=== PATIENT | male | born 1950 | race Caucasian/White ===

== ENCOUNTER → 2020-06-04 | Outpatient (CLI) | payer MEDICARE, SELFPAY ==
[~2020-06-04] MED LIST: BACTRIM DS TAB1 EACH PO; CAPECITABINE500 MG PO; COLACE 100MG C100 MG PO; DIFLUCAN 100 M100 MG PO; DRONABINOL5 MG PO; FINASTERIDE5 MG PO; FLOMAX 0.4 MG0.4 MG PO; HEARTBURN RELIE10 MG PO; KENALOG OINT 0.15 GM TOP; LORTAB 5-325 M1 EACH PO; OMNICEF 300 MG300 MG PO; SENNA LAX8.6 MG PO; SIMVASTATIN20 MG PO; STIOLTO RESPIMAT4 GM INH; TYLENOL325 MG PO; VANCOMYCIN HCL125 MG PO; VENTOLIN HFA 66.7 GM INH; VITAMIN B-121000 MCG PO; VITAMIN D3125 MCG PO
== END ==
LOC: OPSV2 12:00
DX: Z01.810 Encounter for preprocedural cardiovascular examination (principal)
CPT/HCPCS: 93005

== ENCOUNTER → 2020-06-06 | Day surgery (SDC) | payer MEDICARE, OTHER | END | disposition home or self-care (01) | LOC: OR 11:13 | PROVIDERS: Urology | PROC: 0T9B00Z Drainage of Bladder with Drainage Device, Open Approach (ICD-10-PCS; principal; 2020-06-06 13:15) | DX: N40.1 Benign prostatic hyperplasia with lower urinary tract symptoms (principal); N39.498 Other specified urinary incontinence; R33.8 Other retention of urine; N31.9 Neuromuscular dysfunction of bladder, unspecified; N13.30 Unspecified hydronephrosis; N32.89 Other specified disorders of bladder; F17.210 Nicotine dependence, cigarettes, uncomplicated; C19 Malignant neoplasm of rectosigmoid junction; R19.7 Diarrhea, unspecified; K21.9 Gastro-esophageal reflux disease without esophagitis; E78.5 Hyperlipidemia, unspecified; J44.9 Chronic obstructive pulmonary disease, unspecified; Z87.440 Personal history of urinary (tract) infections; Z79.899 Other long term (current) drug therapy; Z20.822 Contact with and (suspected) exposure to COVID-19 | CPT/HCPCS: J0694; J2001; J2704; J3010; J7030; J7040; J7120 ==

== ENCOUNTER 2020-06-08 21:52 | Inpatient (IN) | payer MEDICARE, OTHER ==
[~2020-06-08] VITALS: Ht 167.6 cm; Wt 49.0 kg
[~2020-06-08 21:52] MED LIST changes: -DIFLUCAN 100 M100 MG PO; -HEARTBURN RELIE10 MG PO; -KENALOG OINT 0.15 GM TOP; -TYLENOL325 MG PO; -VANCOMYCIN HCL125 MG PO; -VITAMIN D3125 MCG PO
[2020-06-08 22:24] LABS: HEMOGLOBIN 9.7 gm/dl (14.0-17.5); RED BLOOD COUNT 2.58 M/UL (4.20-5.50); WHITE BLOOD COUNT 15.1 K/UL (4.5-11.0)
[2020-06-08 22:41] LABS: BUN/CREATININE RATIO 24 (0-10)
[2020-06-09 03:33] LABS: HEMOGLOBIN 8.5 gm/dl (14.0-17.5); WHITE BLOOD COUNT 15.8 K/UL (4.5-11.0)
[2020-06-09 03:35] LABS: RED BLOOD COUNT 2.25 M/UL (4.20-5.50)
[2020-06-09 05:35] LABS: BUN/CREATININE RATIO 21 (0-10)
[2020-06-10 06:11] LABS: HEMOGLOBIN 8.2 gm/dl (14.0-17.5)
[2020-06-10 06:16] LABS: RED BLOOD COUNT 2.16 M/UL (4.20-5.50)
[2020-06-10 07:03] LABS: BUN/CREATININE RATIO 14 (0-10)
[2020-06-10] MEDS ORDERED: TYLENOL325 MG PO (12:21)
[2020-06-10] MEDS ORDERED: VITAMIN D3125 MCG PO (12:21)
[2020-06-10] MEDS ORDERED: KENALOG OINT 0.15 GM TOP (13:52)
[2020-06-11 02:25] LABS: ADENOVIRUS F 40/41 Not Detected (Negative); ASTROVIRUS Not Detected (Negative); CAMPYLOBACTER Not Detected (Negative); CRYPTOSPORIDIUM Not Detected (Negative); E.COLI 0157 Not Detected (Negative); ENTAMOEBA HISTOLYTICA Not Detected (Negative); ENTEROAGGREGATIVE E.COLI (EAEC Not Detected (Negative); ENTEROPATHOGENIC E.COLI (EPEC) Not Detected (Negative); ENTEROTOXIGENIC E.COLI (ETEC) Not Detected (Negative); GIARDIA LAMBLIA Not Detected (Negative); NOROVIRUS GI/GII Not Detected (Negative); PLESIOMONAS SHIGELLOIDES Not Detected (Negative); ROTOVIRUS A Not Detected (Negative); SALMONELLA Not Detected (Negative); SAPOVIRUS Not Detected (Negative); SHIG/ENTEROINVAS.ECOLI (EIEC) Not Detected (Negative); SHIGA-LIK TOX.PRO.E.COLI (STEC Not Detected (Negative); VIBRIO Not Detected (Negative); VIBRIO CHOLERAE Not Detected (Negative); YERSINIA ENTEROCOLITICA Not Detected (Negative)
[2020-06-11 04:05] LABS: HEMOGLOBIN 8.3 gm/dl (14.0-17.5); RED BLOOD COUNT 2.18 M/UL (4.20-5.50)
[2020-06-11 04:11] LABS: WHITE BLOOD COUNT 9.3 K/UL (4.5-11.0)
[2020-06-11 07:14] LABS: BUN/CREATININE RATIO 13 (0-10)
[2020-06-11 10:46] LABS: CLOSTRIDIUM DIFFICILE TOX A/B DETECTED (Negative)
[2020-06-13 09:33] LABS: BUN/CREATININE RATIO 4 (0-10)
[2020-06-14 04:14] LABS: BUN/CREATININE RATIO 6 (0-10)
[2020-06-15 05:09] LABS: HEMOGLOBIN 8.6 gm/dl (14.0-17.5); RED BLOOD COUNT 2.25 M/UL (4.20-5.50); WHITE BLOOD COUNT 8.9 K/UL (4.5-11.0)
[2020-06-15 05:16] LABS: BUN/CREATININE RATIO 6 (0-10)
[2020-06-16 05:54] LABS: HEMOGLOBIN 8.2 gm/dl (14.0-17.5); RED BLOOD COUNT 2.12 M/UL (4.20-5.50); WHITE BLOOD COUNT 7.6 K/UL (4.5-11.0)
[2020-06-16 06:18] LABS: BUN/CREATININE RATIO 7 (0-10)
--- NOTE | 2020-06-17 12:06 | NUR ---
REPORTED PATIENT EPISODE OF N/V TO [facility].
[2020-06-18 03:19] LABS: HEMOGLOBIN 8.4 gm/dl (14.0-17.5); RED BLOOD COUNT 2.23 M/UL (4.20-5.50); WHITE BLOOD COUNT 5.8 K/UL (4.5-11.0)
[2020-06-18 03:37] LABS: BUN/CREATININE RATIO 10 (0-10)
[2020-06-18] MEDS ORDERED: DIFLUCAN 100 M100 MG PO (10:38)
[2020-06-18] MEDS ORDERED: HEARTBURN RELIE10 MG PO (10:38)
[2020-06-18] MEDS ORDERED: VANCOMYCIN HCL125 MG PO (10:38)
--- NOTE | 2020-06-18 15:07 | NUR ---
PLAN FOR PATIENT TO GO HOME WITH HOME HEALTH TO FOLLOW UP. PATIENT HAS BEEN ABLE TO TRANSFER FROM CHAIR TO BED USING WALKER WITH 1 ASSIST. PATIENT REFUSED OTHER DAYS WHEN PHYSICAL THERAPIST ASKED TO PROVIDE CARE. ENCOURAGED PATIENT THE IMPORTANCE OF FOLLOWING THE REGIMEN OF HIS CARE. PATIENT VERB UNDERSTANDING. PATIENT NEPHEW CALLED AND WAS DEMANDING FOR PATIENT TO GO TO REHAB INSTEAD OF GOING HOME. INFORMED PATIENT OF HOME HEALTH GOING TO EVALUATE PATIENT FOR SERVICES. FAMILY REFUSED PATIENT TO GO HOME AND INSISTENT FOR HIM TO GO TO REHAB. INFORMED PATIENT OF THE FAMILY CALLING AND DEMANDING OF HIM FOR REHAB VS. GOING HOME. PATIENT STATED HE IS GOING HOME AND HE HAD FAMILY MEMBER WHO WILL BE AVAILABLE TO ASSIST HIM. HE ALSO STATED HE KNOWS HE WILL GET BETTER IF HE GOES HOME. THIS WAS KNOWN TO AIR CHIPPER- JAIRON LOZANO. NEPHEW CALLED BACK AND DEMANDING TO HAVE PATIENT GO TO REHAB AND HE STATED IF PATIENT FELL AT HOME HE WILL BLAKE THE HOSPITAL. INFORMED MY END MATCHER KATYA CROSS AND JAIRON LOZANO CM OF NEPHEWS STATEMENT. INFORMED PATIENT OF HIS NEPHEWS STATEMENT AND HAD A QUIET MOMENT AND FINALLY STATED JUST SEND ME TO REHAB THEN. JAIRON LOZANO CM VERIFY THE CHANGE OF HEART OF THE PATIENT FROM HOME TO REHAB. NOTIFIED DR. OROZCO OF THE ABOVE AND SHE ACKNOWLEDGED.
== END 2020-06-22 16:58 | disposition home health service (06) | DRG 698 ==
LOC: ER1 21:52 → M/S 06-09 04:14 → CDU 06-09 04:14 → M/S 06-09 15:55
PROVIDERS: Emergency Medicine; Internal Medicine; Physician Assistant; Physician Assistant Medical; ADMIT Internal Medicine
PROC: 0TJB8ZZ Inspection of Bladder, Via Natural or Artificial Opening Endoscopic (ICD-10-PCS; principal; 2020-06-06)
PROC: 0T9B30Z Drainage of Bladder with Drainage Device, Percutaneous Approach (ICD-10-PCS; 2020-06-06)
DX: T83.510A Infection and inflammatory reaction due to cystostomy catheter, initial encounter (principal); A41.89 Other specified sepsis; A04.72 Enterocolitis due to Clostridium difficile, not specified as recurrent; B37.41 Candidal cystitis and urethritis; N13.30 Unspecified hydronephrosis; Z20.822 Contact with and (suspected) exposure to COVID-19; E83.42 Hypomagnesemia; K66.8 Other specified disorders of peritoneum; D63.8 Anemia in other chronic diseases classified elsewhere; E87.6 Hypokalemia; J43.9 Emphysema, unspecified; F17.210 Nicotine dependence, cigarettes, uncomplicated; E86.0 Dehydration; Z82.49 Family history of ischemic heart disease and other diseases of the circulatory system; Z85.038 Personal history of other malignant neoplasm of large intestine; Z90.49 Acquired absence of other specified parts of digestive tract; Z93.3 Colostomy status; Z79.899 Other long term (current) drug therapy
CPT/HCPCS: 36415; 71045; 80048; 80053; 81001; 82550; 82553; 83605; 83735; 84132; 84484; 85025; 85027; 85610; 85730; 87040; 87086; 87449; 87507; 93005; 94640; 94664; 94760; 96365; 96375; 96376; 97110-GP-CQ; 97116-GP-CQ; 97162; 97165; 99285; J0694; J1335; J1650; J2001; J2270; J2405; J2543; J2704; J3010; J3475; J3480; J7030; J7040; J7120; Q9963; Q9967; U0002

== ENCOUNTER → 2020-09-02 | Outpatient (CLI) | payer MEDICARE, SELFPAY, OTHER ==
[~2020-09-02] MED LIST changes: +DIFLUCAN 100 M100 MG PO; +HEARTBURN RELIE10 MG PO; +KENALOG OINT 0.15 GM TOP; +TYLENOL325 MG PO; +VANCOMYCIN HCL125 MG PO; +VITAMIN D3125 MCG PO
== END ==
LOC: CT 06-18 15:30
DX: C20 Malignant neoplasm of rectum (principal); R15.9 Full incontinence of feces; R23.9 Unspecified skin changes; D64.81 Anemia due to antineoplastic chemotherapy; I65.22 Occlusion and stenosis of left carotid artery
CPT/HCPCS: 36415; 71260; 82565; Q9967

== ENCOUNTER → 2020-12-10 | Outpatient (CLI) | payer MEDICARE, SELFPAY ==
[2020-12-10 11:44] LABS: HEMOGLOBIN 13.9 gm/dl (14.0-17.5); RED BLOOD COUNT 4.38 M/UL (4.20-5.50); WHITE BLOOD COUNT 7.7 K/UL (4.5-11.0)
[2020-12-10 12:29] LABS: BUN/CREATININE RATIO 12 (0-10)
== END ==
LOC: LAB 10:32
PROVIDERS: Internal Medicine Hematology & Oncology
DX: C20 Malignant neoplasm of rectum (principal); R15.9 Full incontinence of feces; R23.9 Unspecified skin changes; D64.81 Anemia due to antineoplastic chemotherapy
CPT/HCPCS: 36415; 80053; 82378; 85025

== ENCOUNTER → 2021-02-21 | Outpatient (CLI) | payer MEDICARE | LOC: CT 09:39 | DX: C20 Malignant neoplasm of rectum (principal); R23.9 Unspecified skin changes; D64.81 Anemia due to antineoplastic chemotherapy; R15.9 Full incontinence of feces | CPT/HCPCS: 36415; 71260; 82565; Q9967 ==

== ENCOUNTER → 2021-03-06 | Outpatient (CLI) | payer MEDICARE | LOC: HEART 5 16:18 | DX: J44.9 Chronic obstructive pulmonary disease, unspecified (principal) | CPT/HCPCS: 94060; 94729 ==

== ENCOUNTER → 2021-05-02 | Outpatient (CLI) | payer MEDICARE | LOC: RAD 08:23 | DX: M79.672 Pain in left foot (principal) | CPT/HCPCS: 73620 ==

== ENCOUNTER 2021-05-06 14:16 | Inpatient (IN) | payer MEDICARE ==
[~2021-05-06] VITALS: Ht 167.6 cm; Wt 49.0 kg
[2021-05-06 16:06] LABS: BUN/CREATININE RATIO 20 (0-10)
[2021-05-06 17:30] LABS: HEMOGLOBIN 10.9 gm/dl (14.0-17.5); RED BLOOD COUNT 3.58 M/UL (4.20-5.50); WHITE BLOOD COUNT 14.6 K/UL (4.5-11.0)
[2021-05-07 04:48] LABS: HEMOGLOBIN 12.8 gm/dl (14.0-17.5)
[2021-05-07 04:49] LABS: RED BLOOD COUNT 4.21 M/UL (4.20-5.50); WHITE BLOOD COUNT 21.5 K/UL (4.5-11.0)
[2021-05-07 05:48] LABS: BUN/CREATININE RATIO 22 (0-10)
--- NOTE | 2021-05-07 13:29 | NUR ---
SPOKE WITH THE FAMILY OF THE PATIENT ABOUT COMFORT CARE. THE FAMILY AGREED IT WAS THE BEST DECISION TO GO AHEAD AND MAKE PATIENT COMFORT CARE. MADE PATIENT COMFORT CARE WITH FAMILY AT BEDSIDE. ORDER WERE PLACED ELECTRONICALLY.
--- NOTE | 2021-05-10 10:14 | NUR ---
PATIENT SPOKE WITH HOSPITALIST RANI AT THIS TIME AND TOLD HER THAT HE WANTED TO BE A FULL CODE AND THAT HE WANTS TO BE TREATED FOR ANY ILLNESS HE HAS. PATIENT AND ALOERT AND ORIENTED AT TIME OF DISCUSSION. PATIENT STATES THAT HE WAS NOT MADE AWARE BY OTHER PROVIDERS THAT HE HAS PNEUMONIA. PRODUCT DEVELOPMENT CARPENTER MADE AWARE OF SITUATION.
--- NOTE | 2021-05-10 10:55 | NUR ---
BOTH 20G IVS IN PATIENTS LEFT ARM ARE NOTED TO BE LEAKING AND NO LONGER PATENT. BOTH WERE REMOVED WITH CATH TIPS INTACT. NEW LARGE BORE IVS STARTED IN RIGHT ARM FOR FLUID AND ANTIBIOTIC ADMINISTRATION.
[2021-05-10 11:05] LABS: RED BLOOD COUNT 3.42 M/UL (4.20-5.50); WHITE BLOOD COUNT 10.8 K/UL (4.5-11.0)
[2021-05-10 11:08] LABS: HEMOGLOBIN 10.2 gm/dl (14.0-17.5)
[2021-05-10 11:23] LABS: BUN/CREATININE RATIO 29 (0-10)
[2021-05-11 08:17] LABS: BUN/CREATININE RATIO 23 (0-10)
[2021-05-11 08:43] LABS: HEMOGLOBIN 8.5 gm/dl (14.0-17.5); WHITE BLOOD COUNT 10.5 K/UL (4.5-11.0)
[2021-05-11 08:44] LABS: RED BLOOD COUNT 2.85 M/UL (4.20-5.50)
[2021-05-12 07:56] LABS: HEMOGLOBIN 9.3 gm/dl (14.0-17.5); RED BLOOD COUNT 3.13 M/UL (4.20-5.50); WHITE BLOOD COUNT 12.4 K/UL (4.5-11.0)
[2021-05-12 08:18] LABS: BUN/CREATININE RATIO 18 (0-10)
[2021-05-13 07:23] LABS: HEMOGLOBIN 8.9 gm/dl (14.0-17.5); RED BLOOD COUNT 3.07 M/UL (4.20-5.50); WHITE BLOOD COUNT 12.1 K/UL (4.5-11.0)
[2021-05-13 07:46] LABS: BUN/CREATININE RATIO 15 (0-10)
[2021-05-14 04:39] LABS: WHITE BLOOD COUNT 12.9 K/UL (4.5-11.0)
[2021-05-14 04:46] LABS: RED BLOOD COUNT 3.39 M/UL (4.20-5.50)
[2021-05-14 05:03] LABS: BUN/CREATININE RATIO 15 (0-10)
[2021-05-15 05:10] LABS: HEMOGLOBIN 11.1 gm/dl (14.0-17.5)
[2021-05-15 05:28] LABS: RED BLOOD COUNT 3.76 M/UL (4.20-5.50)
[2021-05-15 05:54] LABS: BUN/CREATININE RATIO 14 (0-10)
[2021-05-17 04:28] LABS: HEMOGLOBIN 9.3 gm/dl (14.0-17.5); WHITE BLOOD COUNT 11.9 K/UL (4.5-11.0)
[2021-05-17 04:31] LABS: RED BLOOD COUNT 3.13 M/UL (4.20-5.50)
[2021-05-17 05:02] LABS: BUN/CREATININE RATIO 14 (0-10)
[2021-05-18 06:18] LABS: HEMOGLOBIN 9.4 gm/dl (14.0-17.5); RED BLOOD COUNT 3.19 M/UL (4.20-5.50)
[2021-05-18 07:20] LABS: BUN/CREATININE RATIO 14 (0-10)
--- NOTE | 2021-05-18 19:07 | NUR ---
1000- Late Entry Pat's i.v. discontinued -patient complains of pain at i.v. site. Area is red. Patient does not want i.v. restarted at present time. Dr. Ceaj aware.
--- NOTE | 2021-05-18 19:08 | NUR ---
1730 late entry I.V. Restarted, patient agreeable.
[2021-05-19 08:41] LABS: HEMOGLOBIN 9.4 gm/dl (14.0-17.5); RED BLOOD COUNT 3.21 M/UL (4.20-5.50); WHITE BLOOD COUNT 10.7 K/UL (4.5-11.0)
[2021-05-19 09:01] LABS: BUN/CREATININE RATIO 13 (0-10)
[2021-05-20 07:18] LABS: BUN/CREATININE RATIO 11 (0-10)
[2021-05-21 07:38] LABS: BUN/CREATININE RATIO 13 (0-10)
--- NOTE | 2021-05-21 15:32 | NUR ---
1525- COVID SWAB OBTAINED, TAKEN TO LAB AND GIVEN TO PEWTER FABRICATOR AMANDA
[2021-05-22 07:16] LABS: HEMOGLOBIN 8.2 gm/dl (14.0-17.5)
[2021-05-22 07:37] LABS: RED BLOOD COUNT 2.82 M/UL (4.20-5.50); WHITE BLOOD COUNT 7.7 K/UL (4.5-11.0)
[2021-05-22 08:07] LABS: BUN/CREATININE RATIO 14 (0-10)
[2021-05-22] MEDS ORDERED: CEFUROXIME250 MG PO (09:32)
[2021-05-22] MEDS ORDERED: TYLENOL 8 HOUR650 MG PO (09:32)
[2021-05-22] MEDS ORDERED: FERROUS GLUCON324 M1 PO (09:32)
[2021-05-22] MEDS ORDERED: IPRAT-ALBUT 0.5-3 ML NEB (09:32)
[2021-05-22] MEDS ORDERED: LOPRESSOR 25 MG25 MG PO (09:32)
[2021-05-22] MEDS ORDERED: PROTONIX 40 MG40 M1 PO (09:32)
[2021-05-22] MEDS ORDERED: LISINOPRIL5 MG PO (09:32)
[2021-05-22] MEDS ORDERED: ZOFRAN 4 MG TAB4 MG PO (09:32)
[2021-05-22] MEDS ORDERED: THERAGRAN M TAB1 EA PO (09:32)
--- NOTE | 2021-05-22 15:01 | NUR ---
REQUEST FOR AMBULANCE TRANSFER TO [facility] FAXED TO [facility], RN CALLED AND VERIFIED THAT FAX WAS RECEIVED.
--- NOTE | 2021-05-22 15:40 | NUR ---
REPORT CALLED TO EVIE LOW AT [facility].
[2021-05-25 05:05] LABS: HEMOGLOBIN 8.3 gm/dl (14.0-17.5); RED BLOOD COUNT 2.97 M/UL (4.20-5.50); WHITE BLOOD COUNT 7.4 K/UL (4.5-11.0)
[2021-05-25 05:56] LABS: BUN/CREATININE RATIO 10 (0-10)
== END 2021-05-27 14:42 | DRG 698 ==
LOC: ER1 14:16 → MED SURG 4 18:02 → CDU 18:02 → CCU 05-07 01:23 → MED SURG 4 05-08 19:27
PROVIDERS: Emergency Medicine; Internal Medicine; Internal Medicine Infectious Disease; Physician Assistant; ADMIT Internal Medicine
PROC: 3E033XZ Introduction of Vasopressor into Peripheral Vein, Percutaneous Approach (ICD-10-PCS; principal; 2021-05-06)
PROC: B24BZZZ Ultrasonography of Heart with Aorta (ICD-10-PCS; 2021-05-07)
DX: T83.510A Infection and inflammatory reaction due to cystostomy catheter, initial encounter (principal); R65.21 Severe sepsis with septic shock; Z20.822 Contact with and (suspected) exposure to COVID-19; Z66 Do not resuscitate; J96.21 Acute and chronic respiratory failure with hypoxia; A41.02 Sepsis due to Methicillin resistant Staphylococcus aureus; A41.89 Other specified sepsis; J18.9 Pneumonia, unspecified organism; J44.0 Chronic obstructive pulmonary disease with (acute) lower respiratory infection; N30.00 Acute cystitis without hematuria; J44.1 Chronic obstructive pulmonary disease with (acute) exacerbation; C19 Malignant neoplasm of rectosigmoid junction; I42.8 Other cardiomyopathies; E44.0 Moderate protein-calorie malnutrition; B95.62 Methicillin resistant Staphylococcus aureus infection as the cause of diseases classified elsewhere; D50.9 Iron deficiency anemia, unspecified; I34.0 Nonrheumatic mitral (valve) insufficiency; N31.2 Flaccid neuropathic bladder, not elsewhere classified; Y84.6 Urinary catheterization as the cause of abnormal reaction of the patient, or of later complication, without mention of misadventure at the time of the procedure; I95.89 Other hypotension; E87.6 Hypokalemia; F17.210 Nicotine dependence, cigarettes, uncomplicated; R53.81 Other malaise; Z90.49 Acquired absence of other specified parts of digestive tract; Z80.0 Family history of malignant neoplasm of digestive organs; Z98.62 Peripheral vascular angioplasty status; Z93.3 Colostomy status
CPT/HCPCS: 36415; 71045; 80048; 80053; 80076; 80202; 81001; 82272; 82550; 82553; 82607; 82728; 82746; 83540; 83550; 83605; 83690; 83735; 83874; 84132; 84443; 84484; 85025; 86140; 87040; 87070; 87077; 87086; 87186; 87205; 93005; 93308; 94640; 94664; 94760; 96374; 97110-GP-CQ; 97116-GP-CQ; 97162; 97165; 97530; 97530-GP-CQ; 99285; G0378; J0171; J0456; J1265; J1650; J1756; J2060; J2185; J2270; J2370; J2405; J2543; J3370; J7030; J7070; Q9967; U0002